=== PATIENT | female | born 1965 | race Caucasian/White ===

== ENCOUNTER 2023-07-21 09:09 | Outpatient (CLI) | payer BC | END 2023-07-21 09:10 | disposition home or self-care (01) | LOC: BICRAD 09:09 | PROVIDERS: ATTEND Nurse Practitioner Family | DX: M25.572 Pain in left ankle and joints of left foot (principal); M25.571 Pain in right ankle and joints of right foot; M19.071 Primary osteoarthritis, right ankle and foot; M19.072 Primary osteoarthritis, left ankle and foot ==